=== PATIENT | female | born 1995 | race Caucasian/White ===

== ENCOUNTER 2017-05-20 19:04 | Emergency (ER) | payer OTHER ==
[2017-05-20] MEDS ORDERED: Ondansetron INJ* 2 MG/ML VIAL IV ONE ×2 (19:33→20:35)
[2017-05-20] MEDS ORDERED: HYDROmorphone* 1 MG/ML 1 ML SYR IV ONE ×2 (19:33→20:35)
--- NOTE | 2017-05-20 20:23 | RAD ---
INDICATION: Pain and patellar dislocation COMPARISON: None TECHNIQUE: 2 view radiograph of the left knee. FINDINGS: On the crosstable lateral there is lateral displacement of the patella approximately one lateral with of the patella.. The bones are otherwise intact and appropriately aligned. IMPRESSION: Lateral displacement of the left patella.
[2017-05-20] MEDS ORDERED: LORazepam INJ* 2 MG/ML 1 ML VIAL IV PUSH ONE (21:02)
--- NOTE | 2017-05-20 21:15 | ED ---
Lower Extremity - HPI Summary HPI Summary: 21 female present brought in via EMS with complaints of a left knee cap dislocation that occurred just [employer]. 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 However she believes this one is a complete dislocation. She states pain is excruciating and her thigh muscle keep spasming. She states she just bumped her knee into a chair and this occurred. Denies any other injury or pain. She admits to having "shallow knee caps". PMHx significant for anemia. No other complaints. - History of Current Complaint Chief Complaint: EDExtremityLower Stated Complaint: LT PATELLA DEFORMITY Time Seen by Provider: 05/20/17 19:30 Hx Obtained From: Patient Mechanism Of Injury: Blunt Trauma - hit knee into chair Onset of Pain: Immediate Onset/Duration: Still Present Severity Initially: Severe Severity Currently: Severe Pain Intensity: 10 Pain Scale Used: 0-10 Numeric Timing: Constant Location: Is Discrete @ - left knee Character Of Pain: Sharp, Aching Associated Signs And Symptoms: Positive: Swelling, Knee Pain - obvious deformity Aggravating Factor(s): Standing, Ambulation, Movement, Weight Bearing Alleviating Factor(s): Rest, Nothing Able to Bear Weight: No - Allergies/Home Medications Allergies/Adverse Reactions: Allergies Allergy/AdvReac Type Severity Reaction Status Date / Time No Known Allergies Allergy Verified 05/20/17 19:22 PMH/Surg Hx/FS Hx/Imm Hx Endocrine/Hematology History: Reports: Hx Anemia Denies: Hx Diabetes Cardiovascular History: Denies: Hx Hypertension Respiratory History: Denies: Hx Asthma - Surgical History Surgery Procedure, Year, and Place: n/a - Immunization History Immunizations Up to Date: Yes Infectious Disease History: No Infectious Disease History: Denies: Traveled Outside the [place] in Last 30 Days - Family History Known Family History: Positive: None - Social History Alcohol Use: Occasionally Substance Use Type: Reports: None Smoking Status (MU): Never Smoked Tobacco Review of Systems Constitutional: Negative Respiratory: Negative Gastrointestinal: Negative Positive: Arthralgia, Myalgia, Decreased ROM, Edema - left knee Skin: Negative Neurological: Negative All Other Systems Reviewed And Are Negative: Yes Physical Exam Triage Information Reviewed: Yes Vital Signs On Initial Exam: Initial Vitals BP 116/78 05/20/17 19:12 HR:95 Resp:18 O2: 97 Completion Of Physical Exam Limited Due To: Dementia Appearance: Positive: Well-Appearing, Well-Nourished, Pain Distress - moderate to severe with movement, yelling Skin: Positive: Warm, Skin Color Reflects Adequate Perfusion, Dry. Negative: Cold, Numb, Cyanosis @, Pale, Erythema @, Cold Injury Head/Face: Positive: Normal Head/Face Inspection Eyes: Positive: Conjunctiva Clear ENT: Positive: Hearing grossly normal Neck: Positive: Supple, Nontender Respiratory/Lung Sounds: Positive: Clear to Auscultation, Breath Sounds Present. Negative: Rales, Rhonchi, Wheezes Cardiovascular: Positive: Normal, RRR, Pulses are Symmetrical in both Upper and Lower Extremities - 2+ pedal. Negative: Murmur, Rub Abdomen Description: Positive: Nontender, Soft Bowel Sounds: Positive: Present Musculoskeletal: Positive: Limited @ - left knee due to dislocation, Interruption @ - patella, Abnormal @ - left patella dislocation, Pain @ - left knee, obvious closed lateral dislocation of left patella, Edema Left - at left patella Neurological: Positive: Normal, Sensory/Motor Intact - sensation intact, Alert, Oriented to Person Place, Time, Unable to Assess Gait - due to injury Psychiatric: Positive: Affect/Mood Appropriate, Anxious - [place] Coma Scale Coma Scale Total: 15 Procedures - Joint Reduction Joint Reduction Site: knee (L) - patella Conscious Sedation: No Reduction Attempts: 1 Pre-Procedure NV Exam: Yes Post Joint Reduction Film: joint reduced - patella dislocation, reduced and back in place Diagnostics - Vital Signs Vital Signs Temp Pulse Resp BP Pulse Ox 05/20/17 21:06 16 05/20/17 20:41 14 05/20/17 20:00 95 19 124/84 97 05/20/17 19:42 18 05/20/17 19:32 98 F 82 18 116/78 98 05/20/17 19:30 85 23 95 05/20/17 19:13 15 05/20/17 19:12 116/78 - Laboratory Lab Statement: Any lab studies that have been ordered have been reviewed, and results considered in the medical decision making process. - Radiology left knee Xray Interpretation: Positive (See Comments) - left lateral patella dislocation Radiology Interpretation Completed By: Radiologist left patella Xray Interpretation: Positive (See Comments) - moderate joint effusion status post patella dislocation reduction. Radiology Interpretation Completed By: Radiologist Re-Evaluation - Re-Evaluation First Eval Re-Evaluation Time: 10:30 Change: Improved - patient was feeling much better and comfortable, sleeping. updated on plan and ready to be d/c Lower Extremity Course/Dx - Course Course Of Treatment: given pain management while in ED. x-ray before and after obtained. showed closed left lateral patella dislocation, also noted on physical examination. No fractures. was reduced and put back in place without difficulty or complication. patient tolerated procedure well. effusion of left patella/knee noted after reduction. was observed for 2 hours after pain medication administered before discharge. immobilizer, ice and elevation applied. continue at home. Crutches and non weight bearing. NSAIDs RICE and follow up ortho. Aware of worsening signs and symptoms and to return if occurs or recurrs. - Diagnoses Differential Diagnosis/HQI/PQRI: Positive: Contusion, Dislocation, Fracture ( Closed), Sprain, Strain Provider Diagnoses: Dislocation of patella, left, closed Discharge - Discharge Plan Condition: Stable Disposition: HOME Patient Education Materials: Patellar Dislocation (ED) Referrals: [facility] [Primary Care Provider] - Leeanne Morales MD [Medical Doctor] - Additional Instructions: Limit walking, standing, impact, and repetitive bending, particularly if these activities cause pain. Apply ice and elevate the leg for 10 to 15 minutes four times daily. Use knee immobilizer until given better brace. Take Ibuprofen or Aleve for pain and inflammation. Use crutches. Follow up with orthopedics within 1 week. Return if symptoms worsen or return.
--- NOTE | 2017-05-20 22:06 | RAD ---
INDICATION: Status post patellar relocation COMPARISON: 2 views of the knee acquired on the same date at 1853 hours TECHNIQUE: 2 view radiograph of the left knee acquired at 2053 hours. FINDINGS: There has been interval relocation of the patella depicted in the AP and crosstable lateral views. No radiographically fracture is identified. There is a moderate joint effusion. IMPRESSION: Moderate joint effusion status post left patellar relocation in the AP and lateral views. If the patient's symptoms persist, follow-up imaging is recommended.
[2017-05-20 23:47] VITALS: BP 116/66
== END 2017-05-20 23:30 | disposition home or self-care (01) ==
LOC: ED 19:04
DX: S83.005A Unspecified dislocation of left patella, initial encounter (principal); W22.8XXA Striking against or struck by other objects, initial encounter; Y93.9 Activity, unspecified; Y92.9 Unspecified place or not applicable
CPT/HCPCS: 27550; 96374; 96375; 99284; J1170; J2060; J2405